=== PATIENT | female | born 1945 | race Caucasian/White ===

== ENCOUNTER 2016-07-22 07:04 | Observation (INO) | payer MEDICARE, OTHER ==
[~2016-07-22 07:04] MED LIST: ASPIRIN EC81 MG PO; ATORVASTATIN CA10 M1 PO; ATROVENT; ATROVENT HFA1 PUFF INH; AVELOX400 MG; AZITHROMYCIN500 M3 PO; BAYER CHEWABLE81 M2 PO; BAYER81 MG PO; BIAXIN500 MG; BROVANA15 MCG/22; BROVANA15 MCG/22 NEB; BUDESONIDE; BUDESONIDE0.5 MG/21 NEB; CALCIUM600 MG PO; CIPRO500 M2 PO; COMBIVENT INH14.7 GM; DALIRESP500 MC1; DALIRESP500 MC1 PO; DELTASONE10 MG PO; DULERA 200 MCG/13 G1 INH; FLONASE16 G2 NS; FLUTICASONE; FLUTICASONE PRO16 G1; FORADIL12 MCG; LATANOPROST2.5 M1; LATANOPROST2.5 M1 LEFT EYE; LEVOTHROID112 MCG PO; LEVOTHROID125 MCG; LEVOTHYROXINE112 MC3 PO; LIPITOR40 M1 PO; LIPITOR40 MG PO; MAVIK2 M1 PO; MAVIK2 MG PO; MEDROL4 M2 PO; MUCINEX1200 MG/BO; NEXIUM40 MG; NORCO 5-325 TA1 EACH PO; OMEPRAZOLE20 M4 PO; OMEPRAZOLE20 MG PO; PRAVACHOL40 MG; PREDNISONE10 M1 PO; PREDNISONE20 MG; PREDNISONE20 MG PO; PROVENTIL HFA6.7 G1 INH; SEREVENT INH; SPIRIVA18 MC1 INH; SPIRIVA18 MCG; SPIRIVA18 MCG IH; SYNTHROID150 MCG; TARKA 2/1801 BOTTLE; TRANDOLAPRIL4 M1 PO; TRAVATAN 0.0042.5 ML OP; VENTOLIN HFA18 G2 INH; VERAMYST10 GM; VERAPAMIL ER180 M1 PO; VERAPAMIL ER180 M2 PO; VERAPAMIL HCL180 M1 PO; XALATAN2.5 ML; ZETIA10 M1 PO; ZETIA10 MG; ZETIA10 MG PO
[2016-07-22 07:31] LABS: BASO % 0.2 % (0-2); EOS % 1.4 % (0-7); EOSINOPHIL ABSOLUTE COUNT 0.1 tho/cmm (0.0-0.7); HCT-HEMATOCRIT 38.6 % (34.0-49.0); HGB-HEMOGLOBIN 12.7 gm/dl (12.0-15.5); IMMATURE GRANULOCYTES ABSOLUTE 0.01 tho/cmm (0-0.03); IMMATURE GRANULOCYTES PERCENT 0.2 % (0-0.3); LYMPH % 28.9 % (20-45); LYMPH ABSOLUTE COUNT 1.9 tho/cmm (0.8-4.5); MCH (MEAN CORPUSCULAR HGB) 32.2 pg (28.0-32.0); MCHC MEAN CORPUSCULAR HGB CONC 32.9 % (32.0-36.0); MCV (MEAN CELL VOLUME) 97.7 fl (82.0-96.0); MEAN PLATELET VOLUME 10.3 cmc (9.4-12.4); MONO % 8.8 % (0-12); MONOCYTE ABSOLUTE COUNT 0.6 tho/cmm (0.0-1.2); NEUTROPHIL ABSOLUTE COUNT 3.9 tho/cmm (1.6-8.0); NEUTROPHIL-AUTOMATED 3.9 tho/cmm (1.6-8.0); NEUTROPHILS % 60.5 % (40-80); PLATELET COUNT 182 tho/cmm (150-450); RED BLOOD COUNT 3.95 mil/cmm (4.00-5.20); RED CELL DISTRIBUTION WIDTH 12.9 % (12.4-16.4); WHITE BLOOD COUNT 6.5 tho/cmm (4.0-10.0)
[2016-07-22 07:49] LABS: ANION GAP 11 mmol/L (0-20); BLOOD UREA NITROGEN 19 mg/dl (6-24); CALCIUM 9.4 mg/dl (8.5-10.5); CARBON DIOXIDE-VENOUS 31 mmol/L (22-32); CHLORIDE 105 mmol/l (96-110); CREATININE 0.75 mg/dl (0.50-1.10); GLUCOSE 94 mg/dL (70-110); SODIUM 143 mmol/L (135-145); eGFR VALUE FOR BLACK >90 mL/Min
[2016-07-22 07:53] LABS: TSH-THYROID STIMULATING HORM. 1.55 uIU/ml (0.40-3.80)
[2016-07-22] MEDS ORDERED: NEXIUM40 M1 PO (08:53)
[2016-07-22] MEDS ORDERED: CLARITIN10 M6 PO (08:57)
[2016-07-22] MEDS ORDERED: VITAMIN D-32000 UNI4 PO (09:01)
[2016-07-22] MEDS ORDERED: VENTOLIN HFA18 G2 INH (09:10)
[2016-07-22] MEDS ORDERED: FISH OIL 11000 MG/CA PO (09:12)
[2016-07-22] MEDS ORDERED: ALBUTEROL2.5 MG/3 M NEB (09:14)
[2016-07-22] MEDS ORDERED: OXYGEN (09:16)
[2016-07-22] MEDS ORDERED: CALCIUM CARBON600 M2 PO (14:19)
[2016-07-23] MEDS ORDERED: PREDNISONE10 M1 PO (13:28)
[2016-07-23] MEDS ORDERED: DOXYCYCLINE HY100 M3 PO (13:29)
[2016-09-06] MEDS ORDERED: LEVAQUIN500 M1 PO (12:12)
[2016-09-06] MEDS ORDERED: PREDNISONE10 M1 PO (12:14)
[2016-09-06] MEDS ORDERED: NYSTATIN100000 UNI SSW (12:30)
[2016-09-06] MEDS ORDERED: NYSTATIN100000 UNI SSP (12:34)
== END 2016-07-23 14:33 ==
LOC: EDMED 07:04 → EMR2 10:21 → CAR1 13:30
PROVIDERS: Emergency Medicine; Physician Assistant; ADMIT Internal Medicine Cardiovascular Disease
DX: R07.9 Chest pain, unspecified (principal); J44.1 Chronic obstructive pulmonary disease with (acute) exacerbation; J96.11 Chronic respiratory failure with hypoxia; I10 Essential (primary) hypertension; E78.5 Hyperlipidemia, unspecified; G47.33 Obstructive sleep apnea (adult) (pediatric); E03.9 Hypothyroidism, unspecified; Z79.82 Long term (current) use of aspirin; Z79.899 Other long term (current) drug therapy; Z87.891 Personal history of nicotine dependence; Z98.49 Cataract extraction status, unspecified eye; Z90.49 Acquired absence of other specified parts of digestive tract; Z98.890 Other specified postprocedural states
CPT/HCPCS: A9500; C8929; G0378; J0280; J2785; J2920; J2930; J7030; Q9967